=== PATIENT | male | born 1965 | race Caucasian/White ===

== ENCOUNTER 2019-07-04 04:37 | Inpatient (IN) | payer OTHER ==
[~2019-07-04] VITALS: Ht 182.9 cm; Wt 68.0 kg
[2019-07-04 04:48] LABS: BASOPHILS ABSOLUTE AUTO 0.12 K/mm3 (0.00-0.23); BASOPHILS PERCENT AUTO 1 % (0-2); EOSINOPHILS ABSOLUTE AUTO 0.04 K/mm3 (0.00-0.68); EOSINOPHILS PERCENT AUTO 0 % (0-6); Hemoglobin 18.4 g/dL (13.5-17.5); IMMATURE GRAN ABSOLUTE AUTO 0.05 K/mm3 (0.00-0.10); IMMATURE GRAN PERCENT AUTO 0 % (0-1); LYMPHOCYTES ABSOLUTE AUTO 0.82 K/mm3 (0.84-5.20); LYMPHOCYTES PERCENT AUTO 7 % (21-46); MONOCYTES ABSOLUTE AUTO 1.04 K/mm3 (0.16-1.47); MONOCYTES PERCENT AUTO 9 % (4-13); Mean Corpuscular HGB 33.2 pg (26.0-34.0); Mean Corpuscular HGB Conc 32.9 g/dL (31.5-36.5); Mean Corpuscular Volume 101 fL (80-100); Mean Platelet Volume 10.1 fL (9.1-12.4); NEUTROPHILS ABSOLUTE AUTO 9.82 K/mm3 (1.96-9.15); NEUTROPHILS PERCENT AUTO 83 % (41-73); Platelet Count 262 K/mm3 (150-400); RDW Coefficient Variation 12.4 % (11.7-14.2); RDW Standard Deviation 47.3 fL (35.1-46.3); Red Blood Cell Count 5.54 M/mm3 (4.30-5.90); White Blood Cell Count 11.89 K/mm3 (4.00-11.30)
[2019-07-04] MEDS ORDERED: ALBU2.5V5 INH (04:54)
[2019-07-04] MEDS ORDERED: TIOT18 INH (04:54)
[2019-07-04 05:09] LABS: Alanine Aminotransfer (ALT/SGP 20 U/L (12-78); Albumin, Blood 4.3 g/dL (3.4-5.0); Albumin/Globulin Ratio 1.1 (0.8-1.8); Alk Phos 92 U/L (50-136); Anion Gap 5 mmol/L (6-16); Aspartate Aminotrans (AST/SGOT 10 U/L (12-37); Bilirubin, Total 0.3 mg/dL (0.1-1.0); Blood Urea Nitrogen 9 mg/dL (8-24); Bun/Creatinine Ratio 11.8 (12.0-20.0); CO2, Blood 28 mmol/L (21-32); Calcium, Blood 9.4 mg/dL (8.5-10.1); Chloride, Blood 107 mmol/L (98-108); Creatinine, Blood 0.76 mg/dL (0.60-1.20); Glomerular Filtration Rate >60 (60-); Glucose, Blood 117 mg/dL (70-99); Potassium, Blood 4.6 mmol/L (3.5-5.5); Sodium, Blood 140 mmol/L (136-145); Total Protein, Blood 8.3 g/dL (6.4-8.2); Troponin I <0.015 ng/mL (0.000-0.040)
[2019-07-04] MEDS ORDERED: WIXELA 250-501 EACH INH (07:26)
--- NOTE | 2019-07-04 08:11 | NUR ---
ARRIVAL TO ICU 0715 - PT ARRIVES TO ICU AT THIS TIME FROM ED. HE IS SITTING IN TRIPOD POSITION AND HAVING PURSED LIP BREATHING. SPO2 94% ON 4L NC. PT STILL ABLE TO TALK APPROPRIATELY IN FULL SENTENCES. LUNG SOUNDS COARSE, WHEEZY, AND TIGHT THROUGHOUT ALL CANCINO. RT SANCHO CALLED TO BEDSIDE TO ASSESS FOR TREATMENT(S). [place], HR 120S. PT AWARE OF NEED FOR SPUTUM SAMPLE. AFEBRILE. FAMILY AT BEDSIDE. CALL LIGHT WITHIN REACH. WILL MONITOR CLOSELY.
[2019-07-04 10:31] LABS: Adenovirus Not Detected (NOT DETECT); Coronavirus 229E Not Detected (NOT DETECT); Coronavirus HKU1 Not Detected (NOT DETECT); Coronavirus NL63 Not Detected (NOT DETECT); Coronavirus OC43 Not Detected (NOT DETECT); Human Metapneumovirus Not Detected (NOT DETECT); Influenza A Not Detected (NOT DETECT); Influenza A/H1 Not Detected (NOT DETECT)
[2019-07-04 10:33] LABS: Bordetella pertussis Not Detected (NOT DETECT); Chlamydophila pneumoniae Not Detected (NOT DETECT); Human Rhinovirus/Enterovirus Detected (NOT DETECT); Influenza A/2009-H1 Not Detected (NOT DETECT); Influenza A/H3 Not Detected (NOT DETECT); Influenza B Not Detected (NOT DETECT); Mycoplasma pneumoniae Not Detected (NOT DETECT); Parainfluenza Virus 1 Not Detected (NOT DETECT); Parainfluenza Virus 2 Not Detected (NOT DETECT); Parainfluenza Virus 3 Not Detected (NOT DETECT); Parainfluenza Virus 4 Not Detected (NOT DETECT); Respiratory Syncytial Virus Not Detected (NOT DETECT)
--- NOTE | 2019-07-04 11:46 | NUR ---
REASSESSMENT PT IS MORE RELAXED SINCE PRIOR ASSESSMENT. HAS VISITED WITH HIS FAMILY AT BEDSIDE AND NOW ATTEMPTING TO NAP. LUNG SOUNDS MORE CLEAR THAN PRIOR ASSESSMENT BUT REMAIN DIMINISHED. SPO2 90-93% ON 4L NC. BP WNL. WILL CONTINUE TO MONITOR.
--- NOTE | 2019-07-04 18:14 | NUR ---
TRANSFER TO ROOM 15 REPORT HANDED OFF TO FREDI Rico RN AT THIS TIME. PT STABLE.
--- NOTE | 2019-07-04 18:15 | NUR ---
ASSUMED PATIENT TO ROOM 15. VITAL SIGNS STABLE. PATIENT ON 4 L HUMIDIFIED NS. PATIENT TUCKED IN. ORIENTED TO ROOM. CALL LIGHT IN REACH. WILL BE GIVING REPORT TO ONCOMING MASTER PLANNER NURSE SHORTLY.
--- NOTE | 2019-07-04 22:56 | NUR ---
Patient arrived from ICU A&OX4, without complaints of discomfort although mildly SOB on 4 liters NC. Agreed with WAGE HAND statement that he was definately anxious about wearing biPap mask, and that he was calustrophobic at his baseline. lung sounds with I/E wheezes throughout, strong loose sounding cough productive of white/green sputum which patient states is not too thick.
[2019-07-05 05:25] LABS: Hematocrit 50.5 % (37.0-53.0); Mean Corpuscular HGB 33.5 pg (26.0-34.0); Mean Corpuscular HGB Conc 33.7 g/dL (31.5-36.5); Mean Corpuscular Volume 99 fL (80-100); Mean Platelet Volume 10.3 fL (9.1-12.4); Platelet Count 233 K/mm3 (150-400); RDW Coefficient Variation 12.6 % (11.7-14.2); RDW Standard Deviation 46.5 fL (35.1-46.3); Red Blood Cell Count 5.08 M/mm3 (4.30-5.90); White Blood Cell Count 10.37 K/mm3 (4.00-11.30)
--- NOTE | 2019-07-05 05:32 | NUR ---
warehouse shift supervisor summary Patient was able to sleep most of the night without being overwhelmed by cpap. oob once to bathroom with minimal SOB with stand by assist. lung sounds remain coarse and wheezy. no complaints of discomfort overnight
[2019-07-05 05:48] LABS: Alanine Aminotransfer (ALT/SGP 16 U/L (12-78); Albumin, Blood 3.7 g/dL (3.4-5.0); Albumin/Globulin Ratio 1.1 (0.8-1.8); Alk Phos 73 U/L (50-136); Anion Gap 7 mmol/L (6-16); Aspartate Aminotrans (AST/SGOT 14 U/L (12-37); Bilirubin, Total 0.3 mg/dL (0.1-1.0); Blood Urea Nitrogen 16 mg/dL (8-24); CO2, Blood 27 mmol/L (21-32); Calcium, Blood 9.1 mg/dL (8.5-10.1); Chloride, Blood 106 mmol/L (98-108); Globulin, Blood 3.5 g/dL (2.2-4.0); Glomerular Filtration Rate >60 (60-); Glucose, Blood 137 mg/dL (70-99); Potassium, Blood 4.5 mmol/L (3.5-5.5); Sodium, Blood 140 mmol/L (136-145); Total Protein, Blood 7.2 g/dL (6.4-8.2)
--- NOTE | 2019-07-05 18:35 | NUR ---
SHIFT SUMMARY PATIENT A&O X4, VERY PLEASANT. TOLERATED BIPAP WITHOUT ANY ISSUES FOR A NAP TODAY. SPO2 RANGES FROM 88-94, WAS ON 5L 02, INCREASED TO 6L 02. VOIDS IN COMMODE. COUGHS UP GREEN/WHITE STRINGY THICK PHLEGM. NO TELE EVENTS. DENIES PAIN, NAUSEA, DIZZINESS. HR 90-115.
--- NOTE | 2019-07-06 05:07 | NUR ---
SHIFT SUMMARY NO ACUTE EVENTS OVERNIGHT. PATIENT WAS ABLE TO SLEEP FOR APPROX [address] WITH BIPAP IN PLACE. PATIENT FOUND TO TAKE O2 OFF AT TIMES AND DESAT TO LOW 72%. REMINDED PATIENT TO MAKE SURE HE KEEPS O2 ON. PATIENT UP AD CARLI TO BSC. AAOX4. WILL CONTINUE TO MONITOR.
--- NOTE | 2019-07-06 17:48 | NUR ---
PT. SITTING IN BED EATING DINNER, TOLERATING WELL. PT. STILL EXTREMELY DYSPNIC WITH MOVEMENT AND USE OF BSC. SATS DROP INTO THE MID 80'S AND TAKES A WHILE TO RECOVER ONCE BACK IN BED. LAST TIME UP THE HR STAYED IN THE 90'S. NO NOTEABLE CHANGES THIS SHIFT.
--- NOTE | 2019-07-07 06:02 | NUR ---
SHIFT SUMMARY A/O, ABLE TO MAKE NEEDS KNOWN. COOPERATIVE WITH CARE. CALLS AND ANSWERS QUESTIONS APPROPRIATELY. NO C/O PAIN/DISCOMFORT. INCREASED O2 NEEDS OVERNIGHT; RT AWARE. SPOKE WITH PATIENT ABOUT THE IMPORTANCE OF WEARING THE BIPAP. RT AWARE OF INCREASED O2 NEEDS; RT STATED THAT IT MIGHT JUST BE PT OXYGEN DEMAND AT THIS TIME. VOICED CONCERN THAT BECAUSE PATIENT DOES HAVE COPD THAT HE MAY BE RETAINING CO2. RT STATED TO JUST ASK PATIENT IF HE WOULD CONSIDER WEARING BIPAP. PATIENT STATED THAT HE DID NOT WANT TO WEAR BIPAP AT THAT TIME. CURRENTLY ON 11L VIA HIGH FLOW NC AND HAVING DIFFICULTIES MAINTAINING SATURATION. CALLED RT TO COME UP AND ASSESS. PATIENT STATES OK WITH GOING ON BIPAP ONCE SET UP APPROPRIATELY. VSS/AFEBRILE. WCTM. BED IN LOWEST POSITION. UP TO BSC INDEPENDENTLY. CALL LIGHT AND BELONGINGS WITHIN REACH. REPORT TO ONCOMING RN.
--- NOTE | 2019-07-07 08:00 | NUR ---
PT. HAS A NEW 20 GA. IV IN HIS RIGHT FA AND THE LEFT AC IV HAS BEEN DISCONTINUED. THE PLACEMENT AND REMOVAL OF THIS IV'S NOT CHARTED.
[2019-07-07 18:36] LABS: PCO2 Arterial 56.9 mmHg (35-45); PO2 Arterial 64.7 mmHg (80-100)
--- NOTE | 2019-07-07 18:51 | NUR ---
PT. SITTING IN BED WATCHING TV. DR. BRADY CAME TO SEE PT AND ORDERED AN ABG, HAD RT CHANGES CPAP TO BIPAP. PT. TO SHOWER TODAY WITH O2 IN PLACE. DID DROP HIS SATS. CXR TAKEN THIS AM. PT. DENIES PAIN OR NAUSEA AND IS EATING WELL.
--- NOTE | 2019-07-07 22:57 | NUR ---
PHYSICIAN CORRESPONDENCE [id number] SPOKE TO ON-CALL ABOUT PATIENTS O2 SATURATION. PATIENT HAS CONTINUED TO REQUIRE LARGE AMOUNTS OF O2. SPOKE TO RT, WHOM PLACE TURNED UP PRESSURE ON BIPAP. PATIENT STILL DE-SATING. DR. LAU STATED OK FOR IN-HOUSE TRANSFER AND TO ORDER BIPAP PROTOCOL FOR RT.
--- NOTE | 2019-07-07 23:30 | NUR ---
ASSSUMED CARE FROM RONAK CHOWDARY. RM 327. VERY TACHE[place] OOB TO BSC AND VOIDING. CONVERSING IN FULL SENTENCES AND ORIENTED, RT TO ESTABLISH PROTOCOL ON BIPAP. STARTED AT 15/8 ...55% FIO2. 88-92 SAT. WORE ABOUT AN HOUR AND REMOVED FOR POOR MASK FIT. RT CONSTANT ADJUSTMENTS. AND NOW FALLING OFF TO SLEEP, NOW SAT DROPING AND SLEEPING SOUNDLY AND VERY CALM WHEN AROUSED TO CHECK MENTATION,.DOZING OFF AGAIN. UNABLE TO KEEP SAT > 87 ON 55%. NOTED TIDAL VOLUME 900-1200. RT REPORTS NORMAL FOR PT TO TAKE THESE DEEP BREATHS. RT INCREASES SLOWLY TO 100% TO KEEP >90. NOW 94% ON 90% FIO2. ASLEEP SR. HR ALWAYS 73-83. WHEN HERE FROM MED FLOOR, 11 L NC WAS REQUIRED. WHEN BSC.15 L WAS REQUIRED AND EXTRENE EXERTIONAL DYSPNEA.
--- NOTE | 2019-07-07 23:44 | NUR ---
TRANSFER REPORT [id number] REPORT GIVEN TO FILM FLAT INSPECTOR NAI. PT TRANSFERED WITH THIS RN AND SCIENTIFIC ILLUSTRATOR W/O ANY COMPLICATIONS. PT DID NOT EXHIBIT ANY SIGNS OF DISTRESS DURING TRANSFER.
--- NOTE | 2019-07-08 05:37 | NUR ---
SHIFT SUMMARY. KEPT BIPAP ON THE REST OF NOC. AND VERY CALM IN THIS EFFORT. REMAINED ON 60 % SINCE LAST DOCUMENTATION. OOB AGAIN AND DESATS 80 % WHEN REMOVED BIPAP AND NO O2 REPLACE. NO ACUTE ISSUES
--- NOTE | 2019-07-08 18:52 | NUR ---
SHIFT NOTE PT REPORTS THAT BREATHING HAS IMPROVED TODAY, PT HAS MAINTAINED SPO2 OF 89-93% T/O THE SHIFT. PT A/O X4, ASNWERING QUESTIONS WELL IN FULL SENTENCES. VSS STABLE TODAY. PT DENIES CP. DID COMPLAIN OF SLIGHT ELENA TOWARDS THE END OF SHIFT THAT HE RATED A 2/10 AND ATTIBUTED ELENA TO HIS SLEEPING POSITION
--- NOTE | 2019-07-09 02:08 | NUR ---
ASSUMED CARE AT 1900 . SLEEPING SOUNDLY AND AROUSED FOR ASSESSMENT. O2 PER NC AT 12L AND SAT MID 90'S . EXERTIONAL SOB FOR BSC. REFUSES BIPAP UNTIL MID NOC AND ATIVAN HAD TAKEN AFFECT.NOW TO PRESENT, BIPAP 15/8 ..60% FIO2. VERY COMFORTABLE SLEEP.
--- NOTE | 2019-07-09 06:31 | NUR ---
SHIFT SUMMARY. NO ACUTE CHANGES FROM ABOVE . SLEEPING SOUNDLY UNTIL VOIDING . AND WORE BIPAP FOR ABOUT 4 HRS. NOW 11 L . NC. FOR 93% SAT. SLEPT WELL.
--- NOTE | 2019-07-09 16:31 | NUR ---
SHIFT SUMMARY PT A&Ox4. CALM AND COOPERATIVE WITH CARE. PT AWAKE AND RESTING IN BED. UP IND IN ROOM. PT SOB WITH EXERTION. LS DIM. PT STARTED THIS AM AT 11L O2 VIA NC, TITRATED TO 6L O2. PT TRIPOD POSITION AT TIMES. USING PURSED LIP BREATHIGN AT TIMES. SPEAKING IN FULL SENTENCES. PT IN TRIPOD POSITION AT TIMES. PURSED LIP BREATHING AT TIMES. PT DENIES PAIN, LIGHTHEADED/DIZZINESS AND NAUSEA T/O SHIFT. PT RECEIVING IV STEROIDS. BREATHING TREATMENT PER RT. VSS. NO OTHER ACUTE CHANGES NOTED DURING SHIFT. WILL CONTINUE TO MONITOR UNTIL REPORT GIVEN TO ONCOMING RN.
--- NOTE | 2019-07-09 21:29 | NUR ---
ASSUMED CARE OF PATIENT AT APPROXIMATELY 1905 FROM MASON Kessler RN. PATIENT ALERT AND ORIENTED X4; INDEPDENDENT TO BEDSIDE COMMODE IN ROOM; PATIENT'S OXYGEN SATURATION DECREASES TO LOW 80'S WITH AMBULATION; RECOVERS WITHIN A FEW MINUTES AND OCCASIONALLY REQUIRES ANOTHER LPM OF O2. PATIENT REPORTS HEADACHE 10/14; MEDICATED PER EMAR; GOOD RESULTS. PATIENT DENIES NUMBNESS, TINGLING, DIZZINESS AND NAUSEA. NSR/ST ON TELE; OXYEGN SATURATION ABOVE 90% ON 5LPM VIA HF NC OR BIPAP 18/04 WITH FIO2 OF 40%; DECREASED THIS SHIFT. PURSED LIPPED BREATHING; USING FLUTTER DEVICE DURING SHIFT CHANGE; MODERATE AMOUNT OF YELLOW SPUTUM. PIV S/L. PATIENT CURRENTLY RESTING IN BED; CALL LIGHT IN REACH; BED IN LOWEST POSISTION; WILL CONTINUE TO MONITOR AND ASSESS UNTIL END OF SHIFT.
--- NOTE | 2019-07-10 06:05 | NUR ---
PATIENT'S FIO2 ON BIPAP TITRATED DOWN; PATIENT WORE BIPAP FOR ABOUT FOUR HOURS LAST NIGHT; PATIENT SLEPT ABOUT EIGHT HOURS LAST NIGHT. VSS. WILL CONTINUE TO MONITOR AND ASSESS UNTIL END OF SHIFT.
--- NOTE | 2019-07-10 17:15 | NUR ---
SHIFT SUMMARY PT A&Ox4. CALM AND COOPERATIVE WITH CARE. PT AWAKE AND RESTING IN BED. UP IND IN ROOM. PT WALKING IN HALLS IND. PT REPORTS ELENA THIS AM, DENIES NEEDS FOR PAIN MEDICATIONS. PT SOB WITH EXERTION, >88% ON 5-6L, 6L WITH ACTIVITY. PT DENIES NAUSEA. PT STATES SEVERAL TIME THAT HE WANTS TO GO HOME. PT RECEIVING IV STEROIDS. VSS. NO OTHER ACUTE CHANGES NOTED. WILL CONTINUE TO MONITOR UNTIL REPORT GIVEN TO ONCOMING RN.
--- NOTE | 2019-07-11 07:50 | NUR ---
pt laying in bed watching tv, a/ox3, pleasant and cooperative with care, follows commands well, denies pain, except his chronic knee discomfort, lungs are a bit course in upper crocker, dim in bases, resp even and unlabored at rest, currently on 4.5 liters o2 via high flow cannula, has a very productive cough of yellow/green sputum, hrr, tele in place running sr per monitor, see strip, no edema noted, ppp+2, cap refill <3sec, vs stable, afebrile, iv site is clear and patent, 20g to left wrist, s.l., btx4, abd flat soft nontender, voids without diff, skin c/w/d, did become diaphoretic durring the night, stephanie rodriguez, am care done, call light in reach.
--- NOTE | 2019-07-11 13:55 | NUR ---
PT HAS BEEN TRANSFERED TO MEDICAL FLOOR, HE IS OK WITH THAT, REPORT GIVEN TO EUGENIE CHOWDARY, HE TRANSFERED VIA WHEELCHAIR WITH CLIENT TECHNOLOGIES SPECIALIST IN ATTENDENCE. ALL BELONGINGS WENT WITH PT.
--- NOTE | 2019-07-11 18:33 | NUR ---
PT. ARRIVED TO FLOOR FROM [facility] THIS AFTERNOON. PT. IS A&O COOPERATIVE, GAIT STEADY AND EVEN. NO NOTEABLE CHANGES
--- NOTE | 2019-07-12 05:58 | NUR ---
SHIFT SUMMARY: PATIENT HAS NO COMPLAINTS OF SOB OR DYSPNEA. SATING 91% ON 5L AT START OF SHIFT. THEN 94% ON 4L, THEN 95% ON 3L, THEN ON 2L AFTER ACTIVITY 88% QUICKLY RECOVERS UP TO 92% AT REST. NO COMPLAINTS OF PAIN OR DISCOMFORT.
--- NOTE | 2019-07-12 10:00 | NUR ---
ASSUMED CARE OF PATIENT. REPORT RECEIVED FROM RICARDA IZAGUIRRE
[2019-07-12] MEDS ORDERED: ACET325 PO (11:10)
[2019-07-12] MEDS ORDERED: ROBITUSSIN COU237 ML PO (11:13)
[2019-07-12] MEDS ORDERED: NICO21TP TOP (11:14)
[2019-07-12] MEDS ORDERED: PRED10 PO (11:17)
[2019-07-12] MEDS ORDERED: SERT25 PO (11:19)
--- NOTE | 2019-07-12 18:00 | NUR ---
PATIENT D/C'D TO HOME. RX MEDICATIONS FAXED TO [facility]. [facility] DELIVERED PORTABLE O2 TANK AND SOME LARGE O2 TANKS. D/C INSTRUCTIONS AND EDUCATION DISCUSSED WITH PATIENT AND COPY PROVIDED. PATIENT AWARE HE NEEDS TO WAIT UNTIL THE August TO APPLY FOR OHP AND ESTABLISH A PCP. PATIENT DENIES ANY FURTHER QUESTIONS OR CONCERNS.
== END 2019-07-12 18:00 | disposition home or self-care (01) | DRG 189 ==
LOC: ER 04:37 → ERHOLD 04:38 → EDBEDREQ 05:22 → EDBEDREQSVC 05:22 → ICUE 05:30 → MEDS 05:30 → ERHOLD 05:30 → ICUE 07:03 → ICUW 18:24 → MEDS 22:21 → PCU 07-07 23:20 → MEDS 07-11 14:15
PROVIDERS: Emergency Medicine; Internal Medicine Critical Care Medicine; ADMIT Internal Medicine
PROC: 5A09357 Assistance with Respiratory Ventilation, Less than 24 Consecutive Hours, Continuous Positive Airway Pressure (ICD-10-PCS; principal; 2019-07-07)
DX: J96.01 Acute respiratory failure with hypoxia (principal); F17.203 Nicotine dependence unspecified, with withdrawal; J43.9 Emphysema, unspecified; F41.9 Anxiety disorder, unspecified; B34.8 Other viral infections of unspecified site; J40 Bronchitis, not specified as acute or chronic; Z99.81 Dependence on supplemental oxygen
CPT/HCPCS: 0099U; 36415; 36600; 71045; 71260; 80053; 82803; 83036; 84145; 84484; 85025; 85027; 85730; 87040; 87070; 87205; 90686; 93005; 93010; 94640; 94644; 94645; 94660; 94760; 94761; 94762; 96365; 96375; 98960; 99285-25; A9270; G0008; J1650; J1956; J2920; J2930; J7512; Q9967

== ENCOUNTER 2023-10-19 12:06 | Emergency (ER) | payer MEDICARE, OTHER ==
[~2023-10-19] VITALS: Ht 182.9 cm; Wt 62.1 kg
[~2023-10-19 12:06] MED LIST: ACET325 PO; ALBU2.5V5 INH; NICO21TP TOP; PRED10 PO; ROBITUSSIN COU237 ML PO; SERT25 PO; TIOT18 INH; WIXELA 250-501 EACH INH
[2023-10-19] MEDS ORDERED: Ipratropium/Albuterol SulF 2.5-0.5MG/3 ML Amp INH PRN (12:30)
[2023-10-19] MEDS ORDERED: HYDROmorphone HCl/Pf 1MG SYR IV ONE ×2 (12:55→16:00)
[2023-10-19 13:05] LABS: Base Excess Venous 2.3 mmol/L; Bicarbonate Venous 25.3 mmol/L (24.0-30.0); PCO2 Venous 48.2 mmHg (38-42); pH Blood Venous 7.37 (7.34-7.37)
[2023-10-19 13:14] LABS: BASOPHILS ABSOLUTE AUTO 0.07 K/mm3 (0.00-0.23); BASOPHILS PERCENT AUTO 1 % (0-2); EOSINOPHILS ABSOLUTE AUTO 0.02 K/mm3 (0.00-0.68); EOSINOPHILS PERCENT AUTO 0 % (0-6); IMMATURE GRAN ABSOLUTE AUTO 0.03 K/mm3 (0.00-0.10); IMMATURE GRAN PERCENT AUTO 0 % (0-1); LYMPHOCYTES ABSOLUTE AUTO 1.65 K/mm3 (0.84-5.20); LYMPHOCYTES PERCENT AUTO 16 % (21-46); MONOCYTES ABSOLUTE AUTO 0.82 K/mm3 (0.16-1.47); MONOCYTES PERCENT AUTO 8 % (4-13); Mean Corpuscular Volume 91 fL (80-100); Mean Platelet Volume 10.6 fL (9.1-12.4); NEUTROPHILS ABSOLUTE AUTO 7.74 K/mm3 (1.96-9.15); NEUTROPHILS PERCENT AUTO 75 % (41-73); Platelet Count 228 K/mm3 (150-400); Red Blood Cell Count 5.16 M/mm3 (4.30-5.90); White Blood Cell Count 10.33 K/mm3 (4.00-11.30)
[2023-10-19] MEDS ORDERED: BREZTRI AEROS10.7 GM IH (13:14)
[2023-10-19] MEDS ORDERED: FOSAMAX70 MG PO (13:15)
[2023-10-19 13:38] LABS: Albumin, Blood 4.2 g/dL (3.4-5.0); Albumin/Globulin Ratio 1.4 (0.8-1.8); Bilirubin, Total 0.8 mg/dL (0.1-1.0); Bun/Creatinine Ratio 22.7 (12.0-20.0); Calcium, Blood 9.4 mg/dL (8.5-10.1); Creatinine, Blood 0.66 mg/dL (0.60-1.20); Globulin, Blood 3.1 g/dL (2.2-4.0); Potassium, Blood 3.9 mmol/L (3.5-5.5); Total Protein, Blood 7.3 g/dL (6.4-8.2)
[2023-10-19] MEDS ORDERED: PredniSONE 20 MG Tab PO ONE (14:00)
[2023-10-19 14:02] LABS: Influenza A, PCR NEGATIVE (NEGATIVE); Influenza B, PCR NEGATIVE (NEGATIVE); Resp Syncytial Virus, PCR NEGATIVE (NEGATIVE); SARS-Cov-2 (COVID-19) PCR, MMC NEGATIVE (NEGATIVE)
[2023-10-19] MEDS ORDERED: Ketorolac Tromethamine 30mg Vial IV ONE (16:00)
[2023-10-19] MEDS ORDERED: OXAYDO5 M1 PO ×2 (16:06→16:09)
[2023-10-19 17:14] VITALS: BP 129/90
[2023-10-19] MEDS ORDERED: PRED20 PO (19:07)
[2023-10-19] MEDS ORDERED: AZIT250 PO (19:07)
== END 2023-10-19 17:14 | disposition home or self-care (01) ==
LOC: ER 12:06
PROVIDERS: Physician Assistant; Student in an Organized Health Care Education/Training Program
DX: G89.29 Other chronic pain (principal); J44.1 Chronic obstructive pulmonary disease with (acute) exacerbation; Z96.82 Presence of neurostimulator; F17.200 Nicotine dependence, unspecified, uncomplicated; Z79.51 Long term (current) use of inhaled steroids; Z79.52 Long term (current) use of systemic steroids; Z79.899 Other long term (current) drug therapy
CPT/HCPCS: 0241U; 71045; 80053; 82803; 83880; 84484; 85025; 85379; 93005; 93010; 94640; 94664; 96374; 96375; 96376; 99285-25; J1170; J1885; J7512